=== PATIENT | female | born 2000 | race Caucasian/White ===

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

== ENCOUNTER 2018-07-31 10:43 | Emergency (ER) | payer BC, MEDICAID ==
[2018-07-31 10:55] VITALS: BP 144/97
--- NOTE | 2018-07-31 11:12 | EDM.PDOC ---
ED HPI GENERAL MEDICAL PROBLEM - General Chief Complaint: Lower Extremity Injury/Pain Stated Complaint: RT KNEE INJURY Time Seen by Provider: 07/31/18 11:11 Source of Information: Reports: Patient History Limitations: Reports: No Limitations - History of Present Illness INITIAL COMMENTS - FREE TEXT/NARRATIVE: 17-year-old female presents the ED complaining of right knee pain. She states she slipped on ice this morning about 0730 hrs. Landed with direct blow to her right anterior knee mostly over the patella. Pain is somewhat inferior to the patella. She states she can hardly weight-bear can hardly straighten the knee. She denies any others injuries particularly to her head or neck. Has had ice on the knee pretty well all morning. Onset: Today Onset Date: 07/31/18 Onset Time: 19:30 Duration: Hour(s): Location: Reports: Lower Extremity, Right Quality: Reports: Ache (Injury to the right knee anteriorly), Throbbing Severity: Moderate Improves with: Reports: None Worsens with: Reports: Movement Context: Reports: Trauma. 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 [No Known Home Meds] 07/31/18 [History] Past Medical History - Past Health History Medical/Surgical History: Denies Medical/Surgical History Psychiatric History: Reports: Anxiety, Depression - Past Surgical History HEENT Surgical History: Reports: Tonsillectomy Social & Family History - Tobacco Use Smoking Status *Q: Current Every Day Smoker Years of Tobacco use: 2 Packs/Tins Daily: 0.5 - Caffeine Use Caffeine Use: Reports: None - Recreational Drug Use Recreational Drug Use: No - Living Situation & Occupation Living situation: Reports: Single Occupation: Employed Review of Systems - Review of Systems Review Of Systems: See Below Constitutional: Denies: Chills, Diaphoresis, Fever, Weakness, Other Eyes: Reports: No Symptoms Ears: Reports: No Symptoms Nose: Reports: No Symptoms Mouth/Throat: Reports: No Symptoms Respiratory: Reports: No Symptoms Cardiovascular: Reports: No Symptoms GI/Abdominal: Reports: No Symptoms Genitourinary: Reports: No Symptoms Musculoskeletal: Reports: No Symptoms Skin: Reports: No Symptoms Neurological: Reports: No Symptoms ED EXAM, GENERAL - Physical Exam Exam: See Below Exam Limited By: No Limitations General Appearance: Alert, WD/WN, Mild Distress Eye Exam: Bilateral Eye: Normal Inspection Extremities: Other (Examination was limited to her right anterior knee. There is no traumatic effusion evident. Movement of the patella is somewhat painful but patella appears to be intact. There is pain over the tibial tendon. There is pain over the proximal tib-fib. Some pain with full dorsiflexion of the foot. Medial and lateral collateral ligaments appear to be intact. Cruciates appear to be intact.) Neurological: Alert, Oriented, CN II-XII Intact, Normal Cognition Psychiatric: Normal Affect, Normal Mood Skin Exam: Warm, Dry, Intact, Normal Color, No Rash Course - Vital Signs Last Recorded V/S: Last Vital Signs Temp 36.4 C 07/31/18 10:53 Pulse 98 07/31/18 10:53 Resp 16 07/31/18 10:53 BP 144/97 H 07/31/18 10:53 Pulse Ox 99 07/31/18 10:53 - Orders/Labs/Meds Orders: Active Orders 24 hr Category Date Time Status Knee 3V Rt [CR] Stat Exams 07/31/18 11:11 Taken - Radiology Interpretation Free Text/Narrative:: 17-year-old female presents to the ED with direct blow to her right knee this morning when she slipped on the ice. Pain is primarily over the inferior aspect of the patella and the superior part of the tib-fib. The need to be done. She denies any possibility of . - Re-Assessments/Exams Free Text/Narrative Re-Assessment/Exam: 07/31/18 11:34 x-rays of the right knee came back completely normal. Greg wrap applied to the lower extremity. Patient has crutches at home. Greg wrap will be utilized during the daytime and off at night. Ice pack to the knee one half hour out of every 4 hours for the next few days. Motrin 6 mg every 6 hours to reduce pain and inflammation. Use from the work place for the next 3 days Departure - Departure Time of Disposition: 11:35 Disposition: Home, Self-Care 01 Condition: Fair Clinical Impression: Contusion of right knee and lower leg Qualifiers: Encounter type: initial encounter Qualified Code(s): S80.01XA - Contusion of right knee, initial encounter; S80.11XA - Contusion of right lower leg, initial encounter - Discharge Information *PRESCRIPTION DRUG MONITORING PROGRAM REVIEWED*: Not Applicable *COPY OF PRESCRIPTION DRUG MONITORING REPORT IN PATIENT JACQUES: Not Applicable Referrals: PCP,None [Primary Care Provider] - Forms: ED Department Discharge, ED Return to Work/School Form Additional Instructions: Evaluation the emergency room this morning in regards to slip and fall on ice this morning with blunt trauma to the right anterior knee. You have contused the of the patella bursa which overlies the kneecap. X-rays reveal no fractures of the kneecap or patella or of the upper tib-fib. No blood is identified within the joint and the ligaments appear to be intact. It is Greg wrap on during the day and off at night. Ice pack to the knee one half hour out of every 4 hours for the next 2 days. Crutches would be useful to be nonweightbearing for about 3 days until the swelling goes down. 100 mg every 6 hours to reduce pain and inflammation. - My Orders Last 24 Hours: My Active Orders 07/31/18 11:11 Knee 3V Rt [CR] Stat - Assessment/Plan Last 24 Hours: My Active Orders 07/31/18 11:11 Knee 3V Rt [CR] Stat
[2018-07-31] MEDS ORDERED: Ibuprofen 600 MG Tab PO ONE (11:36)
--- NOTE | 2018-07-31 12:05 | CR ---
Right knee: Four views of the right knee were obtained. Comparison: Previous right knee radiographic exam of 02/20/12. Medial and lateral joint spaces are maintained in height. Minimal joint effusion is seen. No fracture or other bony abnormality is seen. Impression: 1. Minimal joint effusion. 2. No additional abnormality is appreciated on right knee exam. Diagnostic code #2
== END 2018-07-31 11:47 | disposition home or self-care (01) ==
LOC: JD.ED 10:43
DX: S80.11XA Contusion of right lower leg, initial encounter (principal); F17.210 Nicotine dependence, cigarettes, uncomplicated; Z98.890 Other specified postprocedural states; W00.0XXA Fall on same level due to ice and snow, initial encounter
CPT/HCPCS: 73562; 99283; A9270; 99282

== ENCOUNTER 2022-05-09 18:16 | Emergency (ER) | payer BC ==
[2022-05-09] MEDS ORDERED: LORazepam 1 MG Tab PO ONE (19:13)
[2022-05-09 19:35] LABS: CORONAVIRUS COVID-19 NAA NEGATIVE (NEGATIVE)
[2022-05-09 20:55] VITALS: BP 122/77; PULSE 93
== END 2022-05-09 20:57 | disposition home or self-care (01) ==
LOC: JD.ED 18:16
DX: F41.9 Anxiety disorder, unspecified (principal); Z86.16 Personal history of COVID-19; Z20.822 Contact with and (suspected) exposure to COVID-19
CPT/HCPCS: 0240U; 36415; 71046; 80053; 84484; 85025; 85379; 93005; 99284; A9270

== ENCOUNTER 2023-01-04 19:45 | Observation (INO) | payer BC ==
[2023-01-04 20:12] VITALS: BP 126/79; PULSE 95
== END 2023-01-04 20:50 | disposition home or self-care (01) ==
LOC: JD.OBCHECK 19:45 → JD.OB 19:50 → JD.OBCHECK 20:50
PROVIDERS: ADMIT Family Medicine; ATTEND Obstetrics & Gynecology
DX: O36.8130 Decreased fetal movements, third trimester, not applicable or unspecified (principal); O99.343 Other mental disorders complicating pregnancy, third trimester; F41.9 Anxiety disorder, unspecified; F32.A Depression, unspecified; O99.613 Diseases of the digestive system complicating pregnancy, third trimester; K21.9 Gastro-esophageal reflux disease without esophagitis; O99.353 Diseases of the nervous system complicating pregnancy, third trimester; G47.00 Insomnia, unspecified; G43.909 Migraine, unspecified, not intractable, without status migrainosus; O21.2 Late vomiting of pregnancy; Z3A.31 31 weeks gestation of pregnancy; Z79.899 Other long term (current) drug therapy
CPT/HCPCS: 59025

== ENCOUNTER 2023-02-08 16:40 | Inpatient (IN) | payer BC ==
[2023-02-08] MEDS ORDERED: Lidocaine 1% 50 ML MDV INJECT ONE (16:48)
[2023-02-08] MEDS ORDERED: Sodium Chloride 0.9% 10 ML Syringe FLUSH PRN (16:48)
[2023-02-08] MEDS ORDERED: Misoprostol 25 MCG (1/4 of 100 MCG) Tab PO ONE ×2 (16:53→21:26)
[2023-02-08] MEDS ORDERED: Betamethasone Acetate/Betamethasone Sod Phosphate 6 MG/1 ML MDV IM ONE (16:54)
[2023-02-08] MEDS ORDERED: Oxytocin/Lactated Ringers 10 UNIT/1,000 ML BAG IV SCH (17:00)
[2023-02-08 17:32] LABS: BASOPHILS PERCENT AUTO 0.2 % (0.0-1.0); EOSINOPHILS ABSOLUTE AUTO 0.1 K/mm3 (0.0-0.4); EOSINOPHILS PERCENT AUTO 0.4 % (0.0-6.0); HEMATOCRIT 31.9 % (37.0-47.0); HEMOGLOBIN 10.9 gm/dl (12.0-16.0); IMMATURE GRAN ABSOLUTE AUTO 0.21 K/mm3 (0.00-0.05); IMMATURE GRAN PERCENT AUTO 1.4 % (0.0-0.4); LYMPHOCYTES ABSOLUTE AUTO 3.4 K/mm3 (1.0-4.8); MEAN CORPUSCULAR HEMOGLOBIN 29.9 pg (28.0-32.0); MEAN CORPUSCULAR HGB CONC 34.2 g/dl (32.0-36.0); MEAN CORPUSCULAR VOLUME 87.6 fl (83.0-99.0); MEAN PLATELET VOLUME 10.5 fl (9.4-12.3); MONOCYTES PERCENT AUTO 6.4 % (0.0-8.0); NEUTROPHILS ABSOLUTE AUTO 10.8 K/mm3 (1.8-7.7); NEUTROPHILS PERCENT AUTO 69.6 % (41.0-71.0); PLATELET COUNT,PLT 265 K/mm3 (150-400); RED BLOOD CELL COUNT 3.64 M/mm3 (4.10-5.30); WHITE BLOOD CELL COUNT,WBC 15.42 K/mm3 (3.9-11.3)
[2023-02-08] MEDS ORDERED: Penicillin G Potassium 5 MILLUNITS in Sodium Chloride 0.9% 100 ML IV STA (18:38)
[2023-02-08] MEDS: Lactated Ringers 1,000 ML IV SCH (19:17)
[2023-02-08] MEDS ORDERED: Famotidine 20 MG Tab PO PRN (19:23)
[2023-02-08] MEDS ORDERED: Sodium Chloride 0.9% 10 ML Syringe FLUSH SCH (21:00)
[2023-02-09] MEDS ORDERED: Lidocaine 1.5% with EPINEPHrine 1:200,000 5 ML Amp ONE
[2023-02-09] MEDS ORDERED: Phenylephrine 1% 10 MG/ML SDV ONE
[2023-02-09] MEDS ORDERED: Lidocaine 1% 10 ML MDV ONE
[2023-02-09] MEDS: Nalbuphine 10 MG/0.5 ML Syringe IVPUSH PRN ×2 (00:33→03:36)
[2023-02-09] MEDS ORDERED: Oxytocin/Lactated Ringers 10 UNIT/1,000 ML BAG IV SCH (01:45)
[2023-02-09] MEDS: Lactated Ringers 1,000 ML IV SCH ×3 (01:56→13:29)
[2023-02-09] MEDS: Penicillin G Potassium 2.5 MILLUNITS in Sodium Chloride 0.9% 100 ML IV SCH ×4 (03:56→07:45)
[2023-02-09] MEDS: Ondansetron 4 MG/2 ML SDV IVPUSH PRN ×2 (06:02→09:54)
[2023-02-09] MEDS ORDERED: Calcium Carbonate 500 MG Tab.Chew PO PRN (06:28)
[2023-02-09] MEDS ORDERED: Bupivacaine/fentaNYL/NS 100 ML Bag EPIDUR PRN (07:20)
[2023-02-09] MEDS ORDERED: fentaNYL 100 MCG/2 ML SDV EPIDUR PRN (07:20)
[2023-02-09] MEDS ORDERED: diphenhydrAMINE 50 MG/ML SDV IVPUSH PRN (07:20)
[2023-02-09] MEDS ORDERED: ePHEDrine 50 MG/ML SDV IVPUSH PRN (07:20)
[2023-02-09 10:59] LABS: GROUP B STREP BY PCR NEGATIVE (NEGATIVE)
[2023-02-09] MEDS ORDERED: Betamethasone Acetate/Betamethasone Sod Phosphate 6 MG/1 ML MDV IM ONE (16:55)
[2023-02-09] MEDS ORDERED: Benzocaine/Menthol 20%-0.5% Spray 78 GM Cannister TOP PRN (17:44)
[2023-02-09] MEDS ORDERED: Hydrocortisone Acetate 25 MG Supp RECTAL PRN (17:44)
[2023-02-09] MEDS ORDERED: Witch Hazel Medicated Pads 40/Jar TOP PRN (17:44)
[2023-02-09] MEDS ORDERED: Docusate Sodium 100 MG Cap PO PRN (17:44)
[2023-02-09] MEDS: Ibuprofen 600 MG Tab PO PRN (22:13)
[2023-02-10] MEDS: Acetaminophen 325 MG Tab PO PRN ×2 (01:25→17:18)
[2023-02-10 05:58] LABS: HEMATOCRIT 26.5 % (37.0-47.0); MEAN CORPUSCULAR HEMOGLOBIN 30.1 pg (28.0-32.0); MEAN CORPUSCULAR HGB CONC 33.6 g/dl (32.0-36.0); MEAN CORPUSCULAR VOLUME 89.5 fl (83.0-99.0); MEAN PLATELET VOLUME 10.5 fl (9.4-12.3); PLATELET COUNT,PLT 245 K/mm3 (150-400); RED BLOOD CELL COUNT 2.96 M/mm3 (4.10-5.30); WHITE BLOOD CELL COUNT,WBC 19.09 K/mm3 (3.9-11.3)
[2023-02-10 06:22] LABS: HEMOGLOBIN 8.9 gm/dl (12.0-16.0)
[2023-02-10] MEDS ORDERED: Ketorolac 30 MG/ML SDV IVPUSH PRN (08:40)
[2023-02-10] MEDS: Cyclobenzaprine 10 MG Tab PO PRN ×2 (09:16→23:31)
[2023-02-10] MEDS: Prenatal Multivitamin with Calcium/Folic Acid/Iron Tab PO SCH (09:17)
[2023-02-10] MEDS: Ketorolac 10 MG Tab PO SCH ×2 (15:11→23:32)
[2023-02-10] MEDS: Ibuprofen 600 MG Tab PO PRN (17:17)
[2023-02-11] MEDS: Ketorolac 10 MG Tab PO SCH ×2 (04:40→07:48)
[2023-02-11] MEDS: Acetaminophen 325 MG Tab PO PRN ×2 (07:44→13:23)
[2023-02-11] MEDS: Prenatal Multivitamin with Calcium/Folic Acid/Iron Tab PO SCH (07:48)
[2023-02-11] MEDS: SUMAtriptan 50 MG Tab PO PRN ×2 (08:11→11:33)
[2023-02-11 14:06] VITALS: BP 138/72; PULSE 68
== END 2023-02-11 14:02 | disposition home or self-care (01) | DRG 560 ==
LOC: JD.OBCHECK 16:40 → JD.OB 16:44 → JD.OBCHECK 16:49 → JD.OB 16:50 → OBSVTOIN 02-09 16:39 → JD.OB 02-09 16:40
PROVIDERS: ADMIT Family Medicine; ATTEND Family Medicine
PROC: 10E0XZZ Delivery of Products of Conception, External Approach (ICD-10-PCS; principal; 2023-02-09)
PROC: 3E033VJ Introduction of Other Hormone into Peripheral Vein, Percutaneous Approach (ICD-10-PCS; 2023-02-09)
PROC: 3E0DXGC Introduction of Other Therapeutic Substance into Mouth and Pharynx, External Approach (ICD-10-PCS; 2023-02-09)
PROC: 3E0R3BZ Introduction of Anesthetic Agent into Spinal Canal, Percutaneous Approach (ICD-10-PCS; 2023-02-09)
PROC: 00HU33Z Insertion of Infusion Device into Spinal Canal, Percutaneous Approach (ICD-10-PCS; 2023-02-09)
PROC: 10H07YZ Insertion of Other Device into Products of Conception, Via Natural or Artificial Opening (ICD-10-PCS; 2023-02-09)
PROC: 3E0334Z Introduction of Serum, Toxoid and Vaccine into Peripheral Vein, Percutaneous Approach (ICD-10-PCS; 2023-02-10)
DX: O42.013 Preterm premature rupture of membranes, onset of labor within 24 hours of rupture, third trimester (principal); Z37.0 Single live birth; O99.62 Diseases of the digestive system complicating childbirth; K21.9 Gastro-esophageal reflux disease without esophagitis; O26.893 Other specified pregnancy related conditions, third trimester; O22.43 Hemorrhoids in pregnancy, third trimester; O66.0 Obstructed labor due to shoulder dystocia; O90.89 Other complications of the puerperium, not elsewhere classified; S16.1XXA Strain of muscle, fascia and tendon at neck level, initial encounter; G43.009 Migraine without aura, not intractable, without status migrainosus; Z3A.36 36 weeks gestation of pregnancy; Z86.16 Personal history of COVID-19; Z90.89 Acquired absence of other organs; Z87.891 Personal history of nicotine dependence; Z67.11 Type A blood, Rh negative
CPT/HCPCS: 36415; 51702; 59020; 59409; 84112; 85025; 85027; 85461; 86592; 86850; 86870; 86900; 86901; 87653; A9270-GY; J0702; J1885; J2300; J2405; J2540; J2590; J2790; J3010; J3490; J7120

== ENCOUNTER 2023-02-12 09:55 | Emergency (ER) | payer BC ==
[2023-02-12] MEDS ORDERED: Sodium Chloride 0.9% 1,000 ML IV ONE (11:41)
[2023-02-12 13:26] VITALS: BP 127/89; PULSE 63
== END 2023-02-12 12:37 | disposition home or self-care (01) ==
LOC: JD.ED 09:55
DX: G97.1 Other reaction to spinal and lumbar puncture (principal); K21.9 Gastro-esophageal reflux disease without esophagitis; Z86.16 Personal history of COVID-19; Z79.899 Other long term (current) drug therapy
CPT/HCPCS: 62273; 96360; 99283; J7030

== ENCOUNTER 2024-05-21 17:16 | Emergency (ER) | payer BC ==
[2024-05-21 17:31] VITALS: BP 129/80; PULSE 88
[2024-05-21 18:04] LABS: BASOPHILS ABSOLUTE AUTO 0.1 K/mm3 (0.0-0.2); BASOPHILS PERCENT AUTO 0.5 % (0.0-1.0); EOSINOPHILS ABSOLUTE AUTO 0.2 K/mm3 (0.0-0.4); EOSINOPHILS PERCENT AUTO 1.6 % (0.0-6.0); HEMATOCRIT 38.5 % (37.0-47.0); HEMOGLOBIN 12.3 gm/dl (12.0-16.0); IMMATURE GRAN ABSOLUTE AUTO 0.03 K/mm3 (0.00-0.05); IMMATURE GRAN PERCENT AUTO 0.3 % (0.0-0.4); LYMPHOCYTES ABSOLUTE AUTO 4.2 K/mm3 (1.0-4.8); LYMPHOCYTES PERCENT AUTO 41.3 % (24.0-44.0); MEAN CORPUSCULAR HEMOGLOBIN 28.7 pg (28.0-32.0); MEAN CORPUSCULAR HGB CONC 31.9 g/dl (32.0-36.0); MEAN PLATELET VOLUME 9.4 fl (9.4-12.3); MONOCYTES ABSOLUTE AUTO 0.5 K/mm3 (0.0-0.8); MONOCYTES PERCENT AUTO 5.2 % (0.0-8.0); NEUTROPHILS ABSOLUTE AUTO 5.2 K/mm3 (1.8-7.7); NEUTROPHILS PERCENT AUTO 51.1 % (41.0-71.0); PLATELET COUNT,PLT 347 K/mm3 (150-400); RED BLOOD CELL COUNT 4.28 M/mm3 (4.10-5.30)
[2024-05-21 18:31] LABS: A/G RATIO 1.2 (1-2); ALBUMIN 4.1 g/dl (3.4-5.0); BILIRUBIN TOTAL 0.2 mg/dL (0.2-1.0); BUN/CREATININE RATIO 15.6 (14-18); C-REACTIVE PROTEIN 0.05 mg/dL (<0.30); CREATININE 0.9 mg/dL (0.55-1.02); EST CRCL DRUG DOSING (CG) 85.98 mL/min; PROTEIN TOTAL,TP 7.5 g/dl (6.4-8.2)
== END 2024-05-21 20:05 | disposition home or self-care (01) ==
LOC: JD.ED 17:16
DX: R10.32 Left lower quadrant pain (principal); F17.210 Nicotine dependence, cigarettes, uncomplicated; Z86.16 Personal history of COVID-19; Z79.899 Other long term (current) drug therapy
CPT/HCPCS: 36415; 76817; 76817-26; 80053; 85025; 86140; 99283; 99284

== ENCOUNTER 2024-10-17 19:06 | Emergency (ER) | payer BC, OTHER ==
[2024-10-17] MEDS ORDERED: Sodium Chloride 0.9% 10 ML Syringe FLUSH PRN (19:51)
[2024-10-17 20:14] LABS: BASOPHILS ABSOLUTE AUTO 0.1 K/mm3 (0.0-0.2); BASOPHILS PERCENT AUTO 0.3 % (0.0-1.0); EOSINOPHILS ABSOLUTE AUTO 0.1 K/mm3 (0.0-0.4); EOSINOPHILS PERCENT AUTO 0.6 % (0.0-6.0); HEMATOCRIT 39.8 % (37.0-47.0); HEMOGLOBIN 13.1 gm/dl (12.0-16.0); IMMATURE GRAN ABSOLUTE AUTO 0.09 K/mm3 (0.00-0.05); IMMATURE GRAN PERCENT AUTO 0.5 % (0.0-0.4); LYMPHOCYTES PERCENT AUTO 16.4 % (24.0-44.0); MEAN CORPUSCULAR HEMOGLOBIN 28.1 pg (28.0-32.0); MEAN CORPUSCULAR HGB CONC 32.9 g/dl (32.0-36.0); MEAN CORPUSCULAR VOLUME 85.2 fl (83.0-99.0); MEAN PLATELET VOLUME 9.2 fl (9.4-12.3); MONOCYTES ABSOLUTE AUTO 0.8 K/mm3 (0.0-0.8); MONOCYTES PERCENT AUTO 4.2 % (0.0-8.0); NEUTROPHILS ABSOLUTE AUTO 14.1 K/mm3 (1.8-7.7); PLATELET COUNT,PLT 381 K/mm3 (150-400); RED BLOOD CELL COUNT 4.67 M/mm3 (4.10-5.30); WHITE BLOOD CELL COUNT,WBC 18.03 K/mm3 (3.9-11.3)
[2024-10-17 20:19] LABS: APPEARANCE,URINE CLEAR (Clear); BILIRUBIN,URINE NEGATIVE (Negative); COLOR,URINE YELLOW (Yellow); GLUCOSE,URINE NEGATIVE (Negative); KETONES,URINE NEGATIVE (Negative); LEUKOCYTE ESTERASE,URINE TRACE (Negative); NITRITE,URINE NEGATIVE (Negative); OCCULT BLOOD,URINE NEGATIVE (Negative); PROTEIN,URINE NEGATIVE (Negative); UROBILINOGEN,URINE 0.2 (0.2-1.0)
[2024-10-17] MEDS: Sodium Chloride 0.9% 1,000 ML IV ONE (20:28)
[2024-10-17 20:35] LABS: A/G RATIO 1.2 (1-2); ALBUMIN 4.2 g/dl (3.4-5.0); ANION GAP 9.4 (5-15); BILIRUBIN TOTAL 0.4 mg/dL (0.2-1.0); CALCIUM 9.6 mg/dL (8.5-10.1); EST CRCL DRUG DOSING (CG) 78.26 mL/min; POTASSIUM,K 3.4 mEq/L (3.5-5.1); PROTEIN TOTAL,TP 7.7 g/dl (6.4-8.2)
[2024-10-17 20:47] LABS: BACTERIA,URINE FEW /hpf (FEW); MUCUS,URINE MODERATE /hpf (FEW); RBC,URINE 0-5 /hpf (0-5)
[2024-10-17] MEDS: Ketorolac 15 MG/ML SDV IVPUSH ONE (21:23)
[2024-10-17 22:05] VITALS: BP 128/67; PULSE 78
== END 2024-10-17 22:03 | disposition home or self-care (01) ==
LOC: JD.ED 19:06
DX: R10.32 Left lower quadrant pain (principal); Z86.16 Personal history of COVID-19; E66.9 Obesity, unspecified; R82.90 Unspecified abnormal findings in urine
CPT/HCPCS: 36415; 76830; 80053; 81001; 83690; 84703; 85025; 87086; 96361; 96374; 99284; J1885; J7030